=== PATIENT | female | born 1935 | race Caucasian/White ===

== ENCOUNTER 2017-07-06 13:23 | Emergency (ER) | payer MEDICARE, OTHER ==
[~2017-07-06] VITALS: Ht 160 cm; Wt 61.2 kg
[~2017-07-06 13:23] MED LIST: ACET650S19 PO; CHOL10003 PO; CITA40TA12 PO; DONE10TA61 PO; GLIM2TAB PO; INSU100I17 SQ; INSU100V8 SQ; MAG355OR17 PO; MAGN2400 PO; MEMA10TA PO; METF10002 PO; METH29OI TP; MULT-245 PO; OXYB5TAB7 PO; QUET25TA5 PO; SIMV40TA3 PO
--- NOTE | 2017-07-06 13:47 | PHYS DOC ---
General Chief Complaint: PSYCH EVALUATION Stated Complaint: [facility] EVALUATION Time Seen by MD: 13:38 Source: patient, EMS, half-way records Exam Limitations: no limitations Problems: History of Present Illness Initial Comments 81-year-old female brought to the ED by EMS from [facility] for medical clearance, mental health evaluation and possible [facility] admission. Patient reportedly rude and aggressive, resistant to redirection and refusing medications. In the ED patient states "everybody can have a bad day" and they were being mean to me. Patient is calm and cooperative here. Patient has DNR Severity: moderate Modifying Factors: improves with other Associated Symptoms: denies symptoms Allergies: Coded Allergies: No Known Drug Allergies (Unverified , 01/29/15) Past Medical History Medical History: other (dementia with behavioral disturbance, UTI, delusional disorder, anxiety disorder, hypertension, overactive bladder, unexplained weight loss, alcohol abuse, chronic pain, major depressive disorder, constipation, DM 1, unspecified psychosis, COPD, urinary retention) Surgical History: noncontributory Social History Smoker: quit greater than 1 year Alcohol: other (history of alcohol abuse) Drugs: none Review of Systems Constitutional: denies chills, denies fever Respiratory: denies cough, denies shortness of breath Cardiovascular: denies chest pain, denies syncope Gastrointestinal: denies diarrhea, denies vomiting Psychiatric/Neurological: see HPI, denies headache, denies weakness Physical Exam General Appearance: WD/WN, no apparent distress Ear, Nose, Throat: hearing grossly normal, normal ENT inspection Neck: non-tender, supple Respiratory: normal breath sounds, no respiratory distress Cardiovascular: normal peripheral pulses, regular rate, rhythm Gastrointestinal: non tender, soft Extremities: non-tender, normal inspection Neurologic/Psychiatric: health 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 Interpreted by me. Potassium 3.2, 20 mEq given by mouth Glucose 61, RN to feed patient Magnesium 1.3, Slow-Mag given 1502: Urine specimen obtained patient is medically cleared for either an evaluation or [facility] admission. [facility] will notify shortly. 165: After a prolonged wait [facility] unit cannot admit the patient due to insurance reasons. They're instead trying to transfer the patient to [facility]. Labs been faxed to [facility] and patient's half-way and we're awaiting disposition and instructions from an accepting facility. Patient remains calm and cooperative in no apparent distress. 1813: No placement can be found in the half-way has requested the patient be transferred back to their facility. She remains calm and cooperative. Impressions: Dementia with behavioral disorder Hypomagnesemia Hypokalemia mild Hypoglycemia Departure Time of Disposition: 18:14 Disposition: 03 XFER SN[facility] Condition: STABLE Additional Instructions: EMS transfer to [facility]. Resume care. PCP follow-up 2-3 days to recheck abnormal labs. NADIYA TAM DO Jul 06, 2017 13:47
[2017-07-06 14:08] LABS: ALBUMIN 3.2 g/dL (3.4-5.0); ALBUMIN/GLOBULIN RATIO 0.8 (1.0-1.7); CALCIUM 9.1 mg/dL (8.5-10.1); CREATININE 0.7 mg/dL (0.6-1.0); GFR 80.7; MAGNESIUM 1.3 mg/dL (1.8-2.4); POTASSIUM 3.2 mmol/L (3.5-5.1); TOTAL BILIRUBIN 0.2 mg/dL (0.2-1.0); TOTAL PROTEIN 7.1 g/dL (6.4-8.2)
[2017-07-06 14:17] LABS: BASO # 0.1 x10^3/uL (0.0-0.2); BASO % 1 % (0-3); EOS # 0.2 x10^3/uL (0.0-0.7); EOS % 2 % (0-3); HEMATOCRIT 37.2 % (36.0-47.0); HEMOGLOBIN 12.5 g/dL (12.0-15.5); LYMPH # 0.8 x10^3/uL (1.0-4.8); LYMPH % 8 % (24-48); MEAN CORPUSCULAR HEMOGLOBIN 30 pg (25-35); MEAN CORPUSCULAR HGB CONC 34 g/dL (31-37); MEAN CORPUSCULAR VOLUME 88 fL (79-100); MONO # 0.7 x10^3/uL (0.0-1.1); MONO % 7 % (0-9); NEUT % 82 % (31-73); PLATELET COUNT 454 x10^3/uL (140-400); RED BLOOD COUNT 4.24 x10^6/uL (3.50-5.40); RED CELL DISTRIBUTION WIDTH 15.4 % (11.5-14.5); WHITE BLOOD COUNT 9.8 x10^3/uL (4.0-11.0)
[2017-07-06] MEDS ORDERED: MAGNESIUM CHLORIDE ER 64 MG TABLET.ER PO SCH (14:45)
[2017-07-06] MEDS ORDERED: POTASSIUM CHLORIDE 20 MEQ TABLET.ER. PO ONE (14:45)
[2017-07-06 15:18] LABS: BILIRUBIN,URINE NEG (NEG); CLARITY,URINE CLEAR; COLOR,URINE STRAW; GLUCOSE,URINE NEG (NEG)
[2017-07-06 15:19] LABS: BACTERIA,URINE FEW /HPF (0-FEW); NITRITE,URINE NEG (NEG); SQUAMOUS EPITHELIAL CELL,UR FEW /LPF; UROBILINOGEN,URINE 0.2 mg/dL (0.2 mg/dL)
[2017-07-06 17:35] VITALS: BP 139/53
[2017-07-06] MEDS ORDERED: ALPRAZolam 0.25 MG TABLET PO ONE (19:30)
[2017-07-06] MEDS ORDERED: LORazepam 2 MG/ML VIAL ONE (19:38)
--- NOTE | 2017-07-07 09:18 | EKG ---
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
== END 2017-07-06 21:10 ==
LOC: ER 13:23
DX: F03.91 Unspecified dementia, unspecified severity, with behavioral disturbance (principal); E83.42 Hypomagnesemia; E87.6 Hypokalemia; E10.649 Type 1 diabetes mellitus with hypoglycemia without coma; Z87.440 Personal history of urinary (tract) infections; F41.9 Anxiety disorder, unspecified; I10 Essential (primary) hypertension; G89.29 Other chronic pain; J44.9 Chronic obstructive pulmonary disease, unspecified; F32.3 Major depressive disorder, single episode, severe with psychotic features; Z87.891 Personal history of nicotine dependence
CPT/HCPCS: 36415; 80053; 81001; 82607; 83540; 83550; 83735; 85025; 87086; 93005; 99285-25